=== PATIENT | female | born 1990 | race Caucasian/White ===

== ENCOUNTER 2019-03-14 22:24 | Emergency (ER) | payer OTHER ==
[~2019-03-14] VITALS: Ht 165.1 cm; Wt 55.5 kg
[2019-03-15] MEDS ORDERED: LIDOcaine 1% w/EPI 1:200,000 injection 10mL vial IM ONE (01:25)
[2019-03-15] MEDS ORDERED: sulfamethoxazole/trimethoprim DS (800/160mg) tablet PO ONE (01:25)
[2019-03-15] MEDS ORDERED: ethyl chloride 103.5ml spray TP ONE (02:05)
[2019-03-15] MEDS ORDERED: BACDS PO (02:12)
[2019-03-15 02:36] VITALS: BP 104/66
== END 2019-03-15 02:33 | disposition home or self-care (01) ==
LOC: ER 23:11
DX: L03.012 Cellulitis of left finger (principal); Z88.8 Allergy status to other drugs, medicaments and biological substances
CPT/HCPCS: 10060; 99283